=== PATIENT | female | born 1940 | race Two or more races ===

== ENCOUNTER 2018-04-27 08:48 | Inpatient (IN) | payer OTHER ==
[~2018-04-27] VITALS: Ht 152.4 cm; Wt 63.5 kg
[2018-05-11] MEDS ORDERED: NORVASC5 MG PO (14:48)
[2018-05-11] MEDS ORDERED: ATORVASTATIN CA20 MG PO (14:49)
[2018-05-11] MEDS ORDERED: OMEPRAZOLE20 M1 PO (14:49)
[2018-05-11] MEDS ORDERED: COL-RITE100 MG PO (14:50)
[2018-05-11] MEDS ORDERED: COMBIGAN EYE DRO5 ML OP (14:54)
== END 2018-05-20 14:13 | disposition home or self-care (01) | DRG 331 ==
LOC: O/R 05-17 06:24 → SURG 05-17 06:24 → SURH 05-17 09:15 → SURG 05-17 11:56
PROVIDERS: Colon & Rectal Surgery
PROC: 0DJD8ZZ Inspection of Lower Intestinal Tract, Via Natural or Artificial Opening Endoscopic (ICD-10-PCS; 2018-05-17)
PROC: 0DTN4ZZ Resection of Sigmoid Colon, Percutaneous Endoscopic Approach (ICD-10-PCS; principal; 2018-05-17 10:45)
DX: K57.32 Diverticulitis of large intestine without perforation or abscess without bleeding (principal); I11.9 Hypertensive heart disease without heart failure; J45.20 Mild intermittent asthma, uncomplicated; R73.01 Impaired fasting glucose; E78.00 Pure hypercholesterolemia, unspecified; G47.33 Obstructive sleep apnea (adult) (pediatric); Z88.0 Allergy status to penicillin

== ENCOUNTER → 2019-05-19 | Day surgery (SDC) | payer OTHER ==
[~2019-05-19] MED LIST: ATORVASTATIN CA20 MG PO; COL-RITE100 MG PO; COMBIGAN EYE DRO5 ML OP; NORVASC5 MG PO; OMEPRAZOLE20 M1 PO
== END | disposition home or self-care (01) ==
LOC: ADM 05-12 14:15 → AMB-ENDOS 07:28
DX: D12.0 Benign neoplasm of cecum (principal); D12.3 Benign neoplasm of transverse colon; K57.32 Diverticulitis of large intestine without perforation or abscess without bleeding; K64.1 Second degree hemorrhoids

== ENCOUNTER → 2019-07-07 06:00 | Outpatient (CLI) | payer OTHER | END | disposition home or self-care (01) | LOC: LAB 06:00 → ADM 11:30 → EDSTATUS 07-14 11:30 → AMB-ENDOS 07-14 11:30 | DX: K29.00 Acute gastritis without bleeding (principal); R11.0 Nausea; K21.9 Gastro-esophageal reflux disease without esophagitis ==

== ENCOUNTER 2020-09-13 09:24 | Day surgery (SDC) | payer OTHER | END 2020-09-13 14:20 | disposition home or self-care (01) | LOC: AMB-ENDOS 09:24 | PROVIDERS: ATTEND Colon & Rectal Surgery | DX: K29.50 Unspecified chronic gastritis without bleeding (principal); K44.9 Diaphragmatic hernia without obstruction or gangrene; Z20.822 Contact with and (suspected) exposure to COVID-19 ==